=== PATIENT | male | born 1960 | race Caucasian/White ===

== ENCOUNTER 2024-11-03 22:36 | Emergency (ER) | payer MEDICAID ==
[~2024-11-03] VITALS: Ht 175.3 cm; Wt 45.0 kg
[2024-11-03 22:53] VITALS: BP 106/82; PULSE 103; RESP 15; O2SAT 98
--- NOTE | 2024-11-04 01:38 | Physician Documentation ---
History of Present Illness ~ Chief Complaint: Palpitations Stated Complaint: HIP PAIN Time Seen by MD: 01:22 HPI Patient presented to the the emergency room requesting an EKG. He was at [facility] earlier this evening for hip pain that has also stating that he w as having chest pain and they did nothing about that therefore he came here. Pain is described as sharp in nature lasting only few sec radiating to his arm and neck. No relieving or exacerbating factors. No shortness of breath. He was established with primary care and Jim denies history of high blood pressure high cholesterol or diabetes but he does smoke. He is adopted so he does not know his family history Medication Reconciliation Allergies: Coded Allergies: No Known Allergies (Unverified , 11/03/24) Review of Systems ROS All review of systems negative except as per HPI Physical Exam Vital Signs: Temperature: 96.8, Source: Temporal, Heart Rate: 103, Respiratory Rate: 15, BP: 106/82, Pulse Oximetry: 98, Weight: 45.000 Physical Exam General: Patient is sleeping, easily arousable, oriented x4 in no acute distress, ambulating without issue Head: Normocephalic and atraumatic. Eyes: Conjunctival normal. EOMI. PERRL. ENT: Mucous membranes moist. Neck: Supple, trachea is midline. Chest: Clear to auscultation bilaterally without rales, rhonchi, or wheezes. There is no accessory muscle use or retractions. Cardiac: Heart rate 90 and regular without murmurs, gallops, or rubs. Progress Results/Orders Results/Orders Orders - GREGG SANTAMARIA MD Electrocardiogram (11/03/24 ) Completed Orders - GREGG SANTAMARIA MD Cbc/Diff (11/04/24 02:05) BMP (11/04/24 02:05) Hs Troponin I W Calculations (11/04/24 02:05) Vital Signs 11/03/24 22:53 Temp 96.8 Pulse 103 Resp 15 B/P (MAP) 106/82 Pulse Ox 98 Laboratory Tests Test 11/04/24 02:18 White Blood Count 7.2 Red Blood Count 4.28 L Hemoglobin 15.5 Hematocrit 44.3 Mean Corpuscular Volume 103.5 H Mean Corpuscular Hemoglobin 36.2 H Mean Corpuscular Hemoglobin Concent 35.0 Red Cell Distribution Width 14.0 Platelet Count 273 Mean Platelet Volume 7.0 L Neutrophils (%) (Auto) 76.7 H Lymphocytes (%) (Auto) 15.4 L Monocytes (%) (Auto) 7.3 Eosinophils (%) (Auto) 0.3 Basophils (%) (Auto) 0.3 Neutrophils # (Auto) 5.5 Lymphocytes # (Auto) 1.1 Monocytes # (Auto) 0.5 Eosinophils # (Auto) 0.0 Basophils # (Auto) 0.0 CBC Comment Sodium Level 139 Potassium Level 4.0 Chloride Level 101 Carbon Dioxide Level 24.5 Anion Gap 14 Blood Urea Nitrogen 11 Creatinine 0.92 Estimated GFR/1.73 m2 83 BUN/Creatinine Ratio 12.0 Glucose Level 80 Calcium Level 8.3 L Troponin I High Sensitivity 30 Albumin 3.8 Chemistry Comments EKG/XRAY/CT/US/VASC/MRI EKG : Additional Comment EKG interpreted by myself shows time of 08/05/2057, rate 100, sinus tachycardia, normal axis, no ST changes Medical Decision Making Findings Patient presented to the emergency room for evaluation of chest pain. Differentials include but are not limited to ACS, pulmonary embolism, aortic pathology, musculoskeletal pain therefore emergent labs ordered which was reassuring for no elevation of troponin. Symptoms are intermittent therefore I do not feel patient is suffering from aortic pathology or pulmonary embolism. Sounds like his spasm but he is having. Symptoms are atypical with a heart score of three. Departure Disposition: 01 HOME / SELF CARE / HOMELESS Impression: Primary Impression: Chest pain Condition: Stable Discharge Instructions: Nonspecific Chest Pain, Adult Additional Instructions: Follow up with your doctor for investigation of chest pain Referrals: NO PRIMARY CARE PROVIDER (PCP) Education Educated: Patient Educated regarding: diagnosis, need for follow up Signature Scribe Signature: No scribe Attestation: The note accurately reflects work and decisions made by me.Gregg Santamaria MD 11/04/24 02:53 GREGG SANTAMARIA MD November 04, 2024 01:38
[2024-11-04 02:29] LABS: BASOPHILS % (AUTO) 0.3 % (0-1); EOSINOPHILS % (AUTO) 0.3 % (0-6); HEMATOCRIT 44.3 % (42.0-52.0); HEMOGLOBIN 15.5 g/dl (14.0-17.9); LYMPHOCYTES # (AUTO) 1.1 X10'3 (1.1-4.8); LYMPHOCYTES % (AUTO) 15.4 % (21-51); MEAN CORPUSCULAR HEMOGLOBIN 36.2 PG (27.0-31.0); MEAN CORPUSCULAR VOLUME 103.5 FL (78-98); MONOCYTES # (AUTO) 0.5 X10'3 (0-0.9); MONOCYTES % (AUTO) 7.3 % (2-12); NEUTROPHILS # (AUTO) 5.5 X10'3 (1.8-7.7); NEUTROPHILS % (AUTO) 76.7 % (42-75); PLATELET COUNT 273 X10'3 (140-440); RED BLOOD COUNT 4.28 X10'6 (4.70-6.10); WHITE BLOOD COUNT 7.2 X10'3 (4.5-11.0)
[2024-11-04 02:40] LABS: ALBUMIN 3.8 G/DL (3.4-5.0); ANION GAP 14 (8-16); BLOOD UREA NITROGEN 11 MG/DL (7-18); CALCIUM 8.3 MG/DL (8.5-10.1); CHLORIDE 101 MMOL/L (99-107); CREATININE 0.92 MG/DL (0.60-1.10); GLUCOSE 80 MG/DL (70-104); SODIUM 139 MMOL/L (135-145); TOTAL CARBON DIOXIDE 24.5 MMOL/L (24-32); eCRCL 53 ML/MIN; eGFR 83 ML/MIN
[2024-11-04 02:55] VITALS: TEMP 96.8
--- NOTE | 2024-11-04 05:18 | ELECTROCARDIOGRAPH REPORT ---
[facility] Test Date: 2024-11-03 Test Time: 22:58:31 Pat Name: PATEL GRANT Department: EMERGENCY ROOM Room: Gender: M Television Engineer: : [id number] Requested By: BARNEY ARELLANO Order Number: [id number] Reading MD: Dr. Andres Dooley Measurements Intervals [place] Rate: 100 P: 83 ME: 131 QRS: 83 QRSD: 87 T: 67 QT: 363 QTc: 469 Interpretive Statements Sinus tachycardia Right atrial enlargement Borderline right axis deviation Electronically Signed On 11-05-2024 6:41:[address] Andres Dooley Please click the below link to view image of tracing.
== END 2024-11-04 02:58 | disposition home or self-care (01) ==
LOC: ER 22:37
DX: R07.9 Chest pain, unspecified (principal)
CPT/HCPCS: 80048; 84484; 85025; 93005; 99284